=== PATIENT | male | born 1975 | race Caucasian/White ===

== ENCOUNTER 2024-02-27 15:06 | Outpatient (CLI) | payer BC, SELFPAY ==
--- NOTE | ~2024-02-27 | XR_ITS ---
XR shoulder RT min 2V Ordering provider: Pop King NP History: . R20.0 - Anesthesia of skin . Comparison: None. FINDINGS: BONES: No acute fracture or dislocation. JOINT SPACES: The acromioclavicular joint is normal. The glenohumeral joint is normal. SOFT TISSUES: Normal. IMPRESSION: No acute osseous abnormality right shoulder. Reviewed, dictated and finalized at location A.
--- NOTE | ~2024-02-27 | XR_ITS ---
XR_CERV2-3V_CR Ordering provider: Pop King NP History: . M25.519 - Pain in unspecified shoulder . Comparison: None. FINDINGS: VERTEBRAL BODIES: Normal height and alignment. No visible fracture or subluxation. The dens is intact . DISK SPACES: Well maintained. PARASPINOUS SOFT TISSUES: No prevertebral soft tissue swelling. IMPRESSION: No acute osseous abnormality cervical spine. Reviewed, dictated and finalized at location A.
== END 2024-02-27 15:07 | disposition home or self-care (01) ==
LOC: MICIMG 15:09
PROVIDERS: PCP Family Medicine
DX: R20.0 Anesthesia of skin (principal); M25.511 Pain in right shoulder
CPT/HCPCS: 72040; 73030